=== PATIENT | female | born 1980 | race Caucasian/White ===

== ENCOUNTER 2022-10-26 13:36 | Emergency (ER) | payer OTHER, SELFPAY ==
[2022-10-26 13:49] VITALS: BP 152/91; PULSE 83; RESP 20; TEMP 36.7; O2SAT 97
--- NOTE | 2022-10-26 13:51 | ED.URI ---
HPI - URI/Sore Throat General Chief Complaint: Upper Respiratory Infection Stated Complaint: Cough/Chest Congestion Time Seen by Provider: 10/26/22 13:40 Source: patient and RN notes reviewed History of Present Illness HPI Narrative: Patient is a 42-year-old female who presents to urgent care with complaints of cough, congestion, headache and fatigue. Patient states that it started yesterday. Patient has been taking DayQuil and Tylenol. Denies any nausea or vomiting. Patient does have a history of asthma and uses albuterol at home. Patient is a current smoker. No other acute complaints. No acute distress noted. Patient aware of the plan of care. Some parts of this dictation were generated by voice recognition software and may contain typographical and/or grammatical inaccuracies. Related Data Home Medications Medication Instructions Recorded Confirmed albuterol sulfate 90 mcg/actuation inhalation 10/26/22 aerosol inhaler atorvastatin 40 mg tablet mg 10/26/22 fluoxetine 40 mg capsule mg 10/26/22 10/26/22 Allergies Allergy/AdvReac Type Severity Reaction Status Date / Time No Known Allergies Allergy Verified 10/26/22 13:54 Review of Systems Review of Systems: CONSTITUTIONAL: Denies fever, chills, or sweats. Reports of fatigue EYES: Denies visual changes, redness, or discharge. ENT: Denies rhinorrhea, congestion, sore throat, or otalgia. CARDIOVASCULAR: Denies chest pain, palpitations, or edema. RESPIRATORY: Reports of chest congestion, cough, intermittent dyspnea GASTROINTESTINAL: Denies abdominal pain, nausea, vomiting, or diarrhea. GENITOURINARY: Denies dysuria or hematuria. SKIN: Denies rash or itching. MUSCULOSKELETAL: Denies back pain, joint pain, or myalgia. NEUROLOGIC: Reports of headache All other systems reviewed are negative, except as documented in HPI. PMFSH Comments At the time of my signature, I reviewed and agree with the nursing past medical, surgical, social, and family history. There is no relevant family history pertinent to the patient complaint. Exam Narrative: GENERAL: This is a well-nourished, well-developed patient, in no apparent distress. HEAD: normocephalic, atraumatic. EYES: PERRL. Sclera clear/white. Vision is grossly intact. EARS: External ears normal, auditory canals clear and without drainage, TMs normal without perforation. Hearing grossly intact. NOSE: External nose normal with no obvious nasal discharge, nares without redness, clear rhinorrhea. THROAT: Mucous membranes moist, posterior pharynx clear. Moderate postnasal drainage NECK: Neck supple CARDIOVASCULAR: Regular rate and rhythm RESPIRATORY: Inspiratory and expiratory wheezes, tight throughout. SKIN: warm, intact with no suspicious lesions or rash, good texture and turgor. NEURO: awake, alert, and oriented to person, place and time. There were no obvious focal neurologic abnormalities. EXTREMITIES: No clubbing, cyanosis, or edema. Course Course Level of Care: Express Care Visit Vital Signs Vital signs: Vital Signs Temperature 98.1 F 10/26/22 13:49 Pulse Rate 83 10/26/22 13:49 Respiratory Rate 20 10/26/22 13:49 Blood Pressure 152/91 H 10/26/22 13:49 Pulse Oximetry 97 10/26/22 13:49 Oxygen Delivery Room Air 10/26/22 13:49 Temperature 98.1 F 10/26/22 13:49 Pulse Rate 83 10/26/22 13:49 Respiratory Rate 20 10/26/22 13:49 Blood Pressure 152/91 H 10/26/22 13:49 Pulse Oximetry 97 10/26/22 13:49 Oxygen Delivery Room Air 10/26/22 13:49 Reviewed- Patient is informed that they may have pre-hypertension or hypertension based on a blood pressure reading in the department. I recommend the patient call the primary care provider listed on their discharge instructions or a physician of their choice this week to arrange follow-up for further evaluation of possible pre-hypertension or hypertension. MDM - URI/Sore Throat MDM Narrative Medical decision making narrative: Advised p
[2022-10-26] MEDS: IPRATROPIUM BR 0.02% INH SOLN 0.5 MG/2.5 ML VIAL INHALATION (14:08)
[2022-10-26] MEDS: ALBUTEROL SULFATE NEB 2.5 MG/3 ML INH INHALATION (14:08)
== END 2022-10-26 14:55 | disposition home or self-care (01) ==
PROVIDERS: Emergency Provider Nurse Practitioner Family; PCP Internal Medicine
DX: J40 Bronchitis, not specified as acute or chronic (principal); E78.00 Pure hypercholesterolemia, unspecified; J45.909 Unspecified asthma, uncomplicated
CPT/HCPCS: 99203; G0463

== ENCOUNTER 2024-10-26 13:18 | Emergency (ER) | payer BC, SELFPAY ==
[2024-10-26 13:33] VITALS: BP 132/77; PULSE 78; RESP 16; TEMP 36.3; O2SAT 98
--- NOTE | 2024-10-26 13:33 | ED_ITS ---
HPI - URI/Sore Throat General Chief Complaint: Upper Respiratory Infection Stated Complaint: Sore throat / cough Time Seen by Provider: 10/26/24 13:33 History of Present Illness HPI Narrative: 44-year-old female presented for complaint of sore throat, nasal congestion and cough over the past 3 days. Woke up this morning and had right-sided neck pain with swollen glands. Not taking anything for symptoms. Denies shortness of breath, nausea, vomiting diarrhea, fevers or lethargy. Smokes 1ppd. Related Data Home Medications ?Medication ?Instructions ?Recorded ?Confirmed ?Last Taken ?Type albuterol sulfate 90 mcg/actuation inhalation 10/26/22 Unknown History aerosol inhaler atorvastatin 40 mg tablet mg 10/26/22 Unknown History fluoxetine 40 mg capsule mg 10/26/22 10/26/22 Unknown History ibuprofen 800 mg tablet mg 10/26/24 Unknown History omeprazole 20 mg capsule,delayed mg 10/26/24 Unknown History release Allergies Allergy/AdvReac Type Severity Reaction Status Date / Time No Known Allergies Allergy Verified 10/26/24 13:33 Review of Systems Review of Systems: per [facility] [place] Social History Social History (Updated 10/26/24 @ 13:46 by Kristie Cordova, [facility]) Smoking packs per day: 1 Smoking cigarettes per day: 20.0 Smoking status: Current every day smoker Tobacco type: cigarettes Exam Narrative: GENERAL: mildly Ill-appearing, no acute distress. EYES: conjunctivae clear ENT: Mucous membranes moist. TM pearly saleh with normal light reflex bilaterally; no tragal tenderness. Oropharynx not erythematous without lesions. No drooling, no hoarseness, no trismus, uvula midline. No tripod positioning, hot potato voice, or soft palate swelling. NECK: Supple. No lymphadenopathy; reports right anterior cervical tenderness CHEST: Clear to auscultation, breath sounds equal. Wheezing to bases. No respiratory distress, speaks in full sentences. HEART: Regular rate and rhythm. No murmur heard. SKIN: Warm, dry, no rash. NEURO: Alert and oriented x3. Course Course Emergency Course: Patient is aware of diagnosis, understands and agrees to treatment plan. Anticipatory guidance given. Patient agrees to follow-up as directed and is aware of reasons to seek care at the emergency department. Portions of this record may have been created with voice recognition software Level of Care: Express Care Visit MDM - URI/Sore Throat MDM Narrative Medical decision making narrative: negative strep result reviewed with pt. declined viral testing. Reviewed prescription. she has albuterol inhaler. Advise supportive treatments. Patient is appropriate for outpatient treatment and follow-up. Differential Diagnosis Differential diagnosis: Likely upper respiratory infection, viral infection and pharyngitis Discharge Plan Discharge Clinical Impression: Bronchitis Patient Disposition: Home Condition: Stable Instructions: Antibiotic Form, Acute Bronchitis (ED) Additional Instructions: Rapid strep swab was negative today You will be notified in a few days if the culture comes back positive for strep, and appropriate antibiotics will be called in at that time. if symptoms are due to a viral illness, it is not treated with antibiotics. V iral symptoms can be present for up to 10-14 days. take the steroid as prescribed Use your inhalers as previously directed Recommendations: Flonase spray and Zyrtec for sinus congestion Cough syrup may cause drowsiness; avoid driving or take it at night time. Tylenol every 8 hours as needed for pain/fever Soft foods, cool liquids, warm tea. Gargle with warm saltwater twice a day. Chloraseptic spray and throat lozenges. Rest and stay hydrated. --Follow up with your PCP --Go to the ER immediately if you cannot swallow your saliva, trouble breathing/wheezing, throat swelling, pain is persistent and severe Patient Language: Yoruba Prescriptions: New benzonatate 200 mg capsule 200 mg PO TID PRN (Reason: cough) Qty: 20 0RF methylprednisolone [Medrol (Barrett)] 4 mg tablets,dose pack See Rx Instructions .ROUTE .COMPLEX Qty: 21 0RF Rx Instructions: orally per package directions No Action fluoxetine 40 mg capsule atorvastatin 40 mg tablet albuterol sulfate 90 mcg/actuation HFA aerosol inhaler INHALATION prednisone 10 mg tablet See Rx Instructions .ROUTE .COMPLEX Qty: 30 0RF Rx Instructions: 4 tabs daily for days 1-3, 3 tabs daily for days 4-6, 2 tabs daily for days 7-9, 1 tab daily for days 10-12 albuterol sulfate 90 mcg/actuation HFA aerosol inhaler 2 puff INHALATION QID PRN (Reason: shortness of breath or wheezing) Qty: 8 0RF ibuprofen 800 mg tablet omeprazole 20 mg capsule,delayed release(DR/EC) Follow-up/Referrals: Uriarte,Venus Tidwell [Primary Care Provider] - Stand Alone Forms: Work/School Release IP Time of Disposition: 13:44
--- OUTSIDE RECORDS SUMMARY | 2024-10-26 13:37 | XMS_ITS | Clinical Summary ---
Author Organization [facility] [address] [facility] Address [address] [place] [address] Care Team Providers Care Trimmer Loader Name Role Phone Venus Uriarte NP Primary Care Provider [phone] Allergies No known active allergies Medications atorvastatin (LIPITOR) 40 mg tabletIndications: Mixed hyperlipidemia Take 1 tablet (40 mg total) by mouth daily 90 tablet 3 4 Active FLUoxetine (PROzac) 40 mg capsuleIndications :Anxiety Take 1 capsule (40 mg total) by mouth daily 90 capsule 3 4 025 Active omeprazole (PriLOSEC) 20 mg capsuleIndications :Gastroesophageal reflux disease without esophagitis Take 1 capsule (20 mg total) by mouth 2 (two) times a day 180 capsule 3 4 025 Active benzonatate (TESSALON) 200 mg capsuleIndications :Cough Take 1 capsule (200 mg total) by mouth 3 (three) times a day as needed for cough 30 capsule 4 Active albuterol HFA (PROVENTIL HFA,VENTOLIN HFA,PROAIR HFA) 90 mcg/actuation inhalerIndications :Mild intermittent asthma without complication Inhale 2 puffs every 4 (four) hours as needed for wheezing 18 g 3 5 Active ibuprofen (ADVIL,MOTRIN) 800 mg tabletIndications: Right leg pain Take 1 tablet (800 mg total) by mouth 3 (three) times a day 90 tablet 4 5 Active ibuprofen (ADVIL,MOTRIN) 800 mg tabletIndications: Right leg pain Take 1 tablet (800 mg total) by mouth 3 (three) times a day 90 tablet 4 3 025 Discontin ued(Reord er) Active Problems Problem Noted Date Diagnosed Date Acute URI 06/22/2024 Assessment & Plan (06/22/2024 3:42 PM INFORMATION SECURITY ASSOCIATE): Doxycycline for pneumonia coverage given, benzonatate given for coughing, and Medrol dose pack given for air way inflammation. Will continue to monitor. Advised to continue with Albuterol inhaler PRN. Class 1 obesity due to exces s calories without serious comorbidity with body mass index (BMI) of 34.0 to 34.9 in adult 06/22/2024 Assessment & Plan (06/22/2024 3:42 PM INFORMATION SECURITY ASSOCIATE): Encouraged heart healthy diet and lifestyle. Advised 150 min/week of aerobic exercise. Encounter for screening colonoscopy 03/08/2024 Right leg pain 11/09/2022 Trochanteric bursitis of right hip 10/20/2022 Assessment & Plan (10/20/2022 1:06 PM CDT): Patient continues to have right hip pain previously she works as a application systems administrator.. 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 Previously back x-rays were done that showed degenerative arthritis.. History of nicotine vaping 09/01/2021 Sciatica, right side 08/05/2020 Assessment & Plan (03/02/2022 1:43 PM CDT): Sciatica getting worse she has been symptomatic 8-12 months pain is tense from lateral side right hip down to her foot.. Pain can do straight leg raise sitting and lying does aggravate her pain. Is at this time lumbar spine x-ray, refer to physical therapy, start this patient on Celebrex 200 mg twice a day. Does have some GERD eye and she is advised elevated is may aggravate this will have to see what happens. Patient to give me a progress report one-month. Assessment & Plan (08/05/2020 5:37 PM INFORMATION SECURITY ASSOCIATE): Patient's sciatica right-sided hip pain and pain radiating down her to 3rd of her femur laterally.. Symptoms present about 3 weeks no injury or accident. 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 No other complaints muscle skeletal simental.. Patient is given Cymbalta/duloxetine for neuropathy as well as her mood/anxiety.. If symptoms remain a full continue ibuprofen or another non steroidal anti-inflammatory for the hip and sciatica symptoms along with duloxetine. Mixed hyperlipidemia 01/24/2019 Assessment & Plan (02/29/2024 2:20 PM CDT): Chronic, stable Lipids at goal Continue Atorvastatin 40 mg daily Assessment & Plan (11/09/2022 2:16 PM CDT): Continue Lipitor. Will recheck labs Assessment & Plan (10/20/2022 1:07 PM CDT): Previous lipid profile in therapeutic range will update lipid profile today. No change in therapy at this time Assessment & Plan (09/01/2021 12:17 PM INFORMATION SECURITY ASSOCIATE): Lipid profile in therapeutic range with medication. Assessment & Plan (01/14/2021 5:23 PM CDT): Patient not taking atorvastatin at this time will do updated fasting lipid profile. Assessment & Plan (08/05/2020 5:35 PM INFORMATION SECURITY ASSOCIATE): Lipid profile within therapeutic range. Recheck in 6 months. Assessment & Plan (01/19/2020 6:25 PM CDT): Update on patient's lipid profile today continue atorvastatin 40 mg daily. Assessment & Plan (01/24/2019 6:14 PM CDT): Plans at this time recheck her lipid profile she is taking atorvastatin 40 mg daily without any difficulty. Non-seasonal allergic rhinitis 01/24/2019 Assessment & Plan (01/24/2019 6:18 PM CDT): Patient is symptomatic allergic rhinitis she is advised use Maureen or Zyrtec generic form. Asthma 09/21/2017 Assessment & Plan (10/20/2022 1:08 PM CDT): Asthma remains stable no change in therapy Assessment & Plan (03/02/2022 1:44 PM CDT): Patient continues use albuterol HFA on a p.r.n. basis. Assessment & Plan (09/01/2021 12:17 PM INFORMATION SECURITY ASSOCIATE): Patient's using albuterol p.r.n. few times a week. Longer taking the equivalent of Advair. Patient is very stable does not need this product a the maintenance medication Assessment & Plan (01/14/2021 5:23 PM CDT): Asthma stable will continue present medication. Assessment & Plan (08/05/2020 5:38 PM INFORMATION SECURITY ASSOCIATE): Patient's asthma stable occasional use of albuterol HFA. No change in therapy. Assessment & Plan (01/19/2020 6:25 PM CDT): Patient's continues to have some episodes of asthma several times a week in which albuterol is used. No change in therapy. Patient stands discontinue smoking would be of benefit to her. Assessment & Plan (01/24/2019 6:13 PM CDT): Patient's asthma for which is aggravated this time by the heat she is having wheezing she is having shortness of breath and she is using her inhaler 4-6 times per day.. 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 Patient talks in complete sentences without any difficulty. No accessory muscle use wheezing on exam present. Patient is given samples of Breo 200/5 . Anticipate asthma will get better at the end of summer she has enough samples to go through February. He has [employer] insurance which may not cover some medications. Patient is encouraged to utilize albuterol 4 times a day. Assessment & Plan (07/24/2018 6:47 PM INFORMATION SECURITY ASSOCIATE): Mild intermittent asthma the medication albuterol HFA does help her. She has to use it several times a week . Patient is given samples Dulera see if this will be more effective in controlling asthma. Anxiety 10/16/2016 Assessment & Plan (02/29/2024 2:19 PM CDT): Chronic, stable, well controlled Continue Fluoxetine 40 mg daily Assessment & Plan (03/02/2022 1:44 PM CDT): Anxiety remains well control on fluoxetine 40 mg daily. Is able to [employer] full- time job as a application systems administrator and problems functioning. Assessment & Plan (09/01/2021 12:16 PM INFORMATION SECURITY ASSOCIATE): Anxiety very stable on present medications. Assessment & Plan (01/14/2021 5:25 PM CDT): Patient found to fluoxetine at 20 mg per day stop working is change to Cymbalta she did not tolerate this. I am going to resume her fluoxetine at 40 mg per day patient give me a progress report this fails to work effectively for her I will see her back in the next several months. 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 Assessment & Plan (08/05/2020 5:30 PM INFORMATION SECURITY ASSOCIATE): Fluoxetine at 20 mg daily is less effective than in the past. Patient has some neuropathy symptoms. Minute discontinue fluoxetine start this patient on Cymbalta/duloxetine see if it will benefit both health problems.. She advised to start on 60 mg daily she becomes nauseated I would do every other day into she adjusted the medication.. Assessment & Plan (01/19/2020 6:27 PM CDT): Patient is having anxiety and depression fluoxetine is been effective is not as helpful as it once was will increase in fluoxetine to 40 mg daily Assessment & Plan (07/24/2018 6:45 PM INFORMATION SECURITY ASSOCIATE): History of anxiety depression her symptoms of predominant that of anxiety. Fluoxetine/Prozac 20 mg daily works very well for her she is comfortable with this medication and how it controls her anxiety. Mild intermittent asthma 10/16/2016 Assessment & Plan (02/29/2024 2:19 PM CDT): Chronic, stable Albuterol as needed History of irritable bowel syndrome 10/16/2016 Assessment & Plan (02/29/2024 2:19 PM CDT): Chronic, intermittent flares Referral to GI placed Due for colonoscopy Assessment & Plan (07/24/2018 6:47 PM INFORMATION SECURITY ASSOCIATE): History of IBS not active problem at this time. Patient has not been symptomatic for least 6 months. Gastroesophageal reflux disease without esophagi tis 10/16/2016 Assessment & Plan (02/29/2024 2:19 PM CDT): Chronic, stable Continue Omeprazole 20 mg BID Assessment & Plan (07/24/2018 6:45 PM INFORMATION SECURITY ASSOCIATE): Patient's GERD symptoms is controlled with omeprazole 40 mg daily. Resolved Problems Problem Noted Date Diagnosed Date Resolved Date Non-recurrent acute suppurat du otitis media of right ear without spontaneous rupture of tympanic membrane 11/09/2022 02/29/2024 Assessment & Plan (11/09/2022 2:18 PM CDT): Amoxicillin as prescribed Encounter to establish care 11/09/2022 02/29/2024 Preventative health care 01/19/2020 Assessment & Plan (10/20/2022 1:05 PM CDT): History and physical completed patient's health risk assessment health maintenance reviewed in addressed. Patient's chief complaint right hip pain consistent with bursitis. Assessment & Plan (09/01/2021 12:16 PM INFORMATION SECURITY ASSOCIATE): History and physical completed patient's health risk assessment health maintenance reviewed in addressed. Laboratory results return BMP FLP a very good. Patient missed her well-woman exam secondary to COVID reschedule. Mammogram also to be schedule. Assessment & Plan (01/14/2021 5:23 PM CDT): History and physical completed patient's health risk assessment health maintenance reviewed in addressed.. Discussed COVID vaccine with this patient answer questions attended by discussion is my impression that she will follow through in getting a COVID vaccine. Patient needs a well-woman exam referral has been made. Mammogram will be scheduled. Assessment & Plan (01/19/2020 6:26 PM CDT): A risk assessment health maintenance reviewed in addressed patient needs to follow-up with kohinoor operator for well-woman exam patient's mammogram is current Cigarette nicotine dependenc e without complication 09/21/2017 09/01/2021 Assessment & Plan (01/14/2021 5:24 PM CDT): Patient continues to smoke approximately 1 pack a day or less Assessment & Plan (01/19/2020 6:24 PM CDT): Patient continues to smoke 1 pack of cigarettes per day unchanged for several years. IBS (irritable bowel syndrome) 09/21/2017 07/24/2018 Tobacco use 10/16/2016 01/19/2020 Overview (12/04/2016): Tobacco use Assessment & Plan (07/24/2018 6:48 PM INFORMATION SECURITY ASSOCIATE): Patient smokes 1 pack per day I discussed with her the use of nicotine patches and gum. Will discuss this again on the next visit. Immunizations Immunization Administration Dates Next Due Influenza, Quadrivalent, Shannan l Culture-based MDCK, Preservative Free, Antibiotic Free, Intramuscular 05/21/2021 Influenza, Quadrivalent, Spl it, Preservative Free, Intramuscular 05/05/2023,06/24/2015 Influenza, Unspecified 06/22/2024(Deferr ed: Patient Refused),03/12/2022,04/11/2017 Surgical History Surgery Date Site/Laterality Comments OTHER SURGICAL HISTORY [facility] CHOLECYSTECTOMY Cholecystectomy Medical History Medical History Date Comments Airway hyperreactivity Asthma Hx Other Medical GERD Hx Other Medical IBS GERD (gastroesophageal reflux disease) Anxiety Chronic bronchitis (HCC) Depression Family History Medical History Relation Name Comments Allergy (severe) Father Kaiser barraza Hypertension Father Kaiser barraza Hypertension; Other Father Kaiser barraza Alive and well; Arthritis Mother Galina barraza Diabetes Mother Galina barraza Diabetes mellit us; Other Mother Galina barraza Alive and well; Relation Name Status Comments Father Kaiser barraza Alive Mother Galina barraza Alive Social History Tobacco Use Types Packs/Day Years Used Date Smoking Tobacco: Every Day Cigarettes 1 28.8 Started: 07/12/1992; Last attempted to quit: 04/16/2021 Smokeless Tobacco: Current Tobacco Cessation:Ready to Q uit: No; Counseling Given: Not Answered Comments:Smoking History Packs/day: 1 Packs Alcohol Use Standard Drinks/Week Comments Yes 0 (1 standard drink = 0.6 oz pur e alcohol) AUDIT-C Answer Date Recorded Q1: How often do you have a drink containing alcohol? 4 or more times a week 11/09/2022 Average Number of Drinks Not on file 023 Frequency of Binge Drinking Not on file 07/2022 PHQ-2 Answer Date Recorded PHQ-2 Total Score (If total score is 3 or more points, staff should administer the PHQ-9) 0 06/22/2024 Comments No Sex and Gender Information Value Date Recorded Sex Assigned at Not on file Legal Sex Female 4:41 PM INFORMATION SECURITY ASSOCIATE Gender Identity Not on file Sexual Orientation Not on file Obstetrics History Last Filed Vital Signs Vital Sign Reading Time Taken Comments Blood Pressure 122/80 02/29/2024 2:01 PM CDT Pulse 72 06/22/2024 3:15 PM INFORMATION SECURITY ASSOCIATE Temperature 36.8 C (98.2 F) 06/22/2024 3:15 PM INFORMATION SECURITY ASSOCIATE Respiratory Rate 16 06/22/2024 3:15 PM INFORMATION SECURITY ASSOCIATE Oxygen Saturation 94% 06/22/2024 3:15 PM INFORMATION SECURITY ASSOCIATE Inhaled Oxygen Concentration - - Weight 98.2 kg (216 lb 6.4 oz) 06/22/2024 3:15 P M INFORMATION SECURITY ASSOCIATE Height 167.6 cm (5' 6 ) 02/29/2024 2:01 PM CDT Body Mass Index 34.93 02/29/2024 2:01 PM CDT Plan of Treatment Upcoming Encounters Date Type Department Care Team (Late st Contact Info) Description 12/28/2024 9:30 AM CDT Hospital Encounter [facility] [address] [place] [address] Taylor Flores MD [address] [address] [place] [address] 12/28/2024 9:30 AM CDT - 12/28/2024 10:00 AM CDT Surgery [facility] [address] [place] [address] Taylor Flores MD [address] [facility] [address] [facility] [address] [place] [address] COLONOSCOPY Scheduled Procedures Name Priority Associated Diagnoses Date/Ti me COLONOSCOPY History of irritable bowel syndrome Encounter for screening colonoscopy 12/28/2024 9:30 AM CDT Health Maintenance Due Date Last Done Comments Colon Cancer Screening-Colonoscopy 1978 DTaP/Tdap/Td Vaccine (1 - Tdap) 1989 Breast Cancer Screening-Mammogram 10/20/2023 10/19/2022, 08/22/2018 Pneumococcal vaccine <65 (1 of 2 - PCV) 02/13/2025 Postponed from 1997 (Patient declined, but will receive in the future) Cervical Cancer Screening 02/28/2025 Po stponed from 1978 (Patient declined, but will receive in the future) Regular Well Visit/Exam 18-64 02/28/2025 02/29/2024, 10/19/2022, 09/01/2021, Additional history exists Influenza Vaccine (Season Ended) 2025 05/05/2023, 03/12/2022, 05/21/2021, Additional history exists Depression Screening 06/22/2025 06/22/2024, 02/29/2024, 05/05/2023, Additional history exists Covid-19 Vaccine Discontinued 06/11/2021, 05/21/2021 Hepatitis B Screening Completed 02/24/2024 Hepatitis C Screening Completed 02/24/2024 HPV Vaccines Aged Out No longer eligi ble based on patient's age to complete this topic Procedures Procedure Name Priority Date/Time Associated Diagnosis Comments HEPATITIS C ANTIBODY Routine 02/24/2024 1:17 PM CDT Encounter for hepatitis C screening test for low risk patient SCREENING MAMMOGRAM BILATERAL W KYA Schedule Routine, Read Routine (OP Routine) 10/19/2022 4:14 PM CDT Breast cancer screening by mammogram from Last 3 Months or Most Recently Relevant to Health Maintenance Results * Hepatitis C antibody Blood (02/24/2024 1:17 PM CDT) Hep C Ab Nonreactive Nonreactive Comment: Interpretive Data Nonreactive: Antibodies to HCV not detected. Does NOT exclude the possibility of recent exposure to HCV. Equivocal: Equivocal for HCV antibodies. Supplemental molecular testing will be automatically performed to determine infection status in accordance with current CDC screening recommendations. Reactive: Positive for HCV antibodies. This may represent current or past HCV infection. Supplemental molecular testing will be automatically performed to determine current infection status in accordance with current CDC screening recommendations. Interpretive data was last revised on 2019. Testing performed by: [facility], [address] [place] [address]., [id number] Blood 02/24/2024 1:17 PM CDT 02/24/2024 6:03 PM CDT us Venus Uriarte NP LAB MICROBIOLOGY - GENERAL ORDER PARKER Final Result Performing Organization Address City/State/[facility] Co de Phone Number [facility] [address] [facility] Department [place] [address] * Screening Mammogram Bilateral W Kya (10/19/2022 4:14 PM CDT) Anatomical Region Laterality Modality Breast Bilateral Mammography Narrative 10/20/2022 4:19 PM CDT BILATERAL DIGITAL MAMMOGRAPHY with tomography. The present examination has been compared to prior imaging study dated 08/22/2018. Mammography Findings CAD (computer-aided detection) software was utilized. The breasts are heterogeneously dense. This may lower the sensitivity of mammography. No masses, significant calcifications or other abnormalities are seen. Impression There is no mammographic evidence of malignancy. Screening mammogram in 1 year is recommended. BI-RADS Category 1: Negative PATIENT LETTER SENT Renan Taylor MD IMG MAMMO PROCEDURES Final Result from Last 3 Months or Most Recently Relevant to Health Maintenance Insurance [facility] [employer] OOS Care Teams Trimmer Loader Relationship Specialty Start Date End Date Venus Uriarte NP PCP - General Family Medicine 11/09/22
--- OUTSIDE RECORDS SUMMARY | 2024-10-26 13:37 | XMS_ITS | Clinical Summary ---
Author Organization [facility] Address [address] [address] Phone Care Team Providers Care Audit Clerk Name Role Phone Renan Taylor MD Primary Care Provider Allergies No known active allergies Medications PROAIR HFA 108 (90 BASE) MCG/ACT Aerosol Solution INHALE 2 PUFFS BY MOUTH EVERY 4 HOURS NEEDED 1 Inhaler 11 6 Active omeprazole (PRILOSEC) 40 MG CAPSULE DELAYED RELEASE TAKE ONE CAPSULE BY MOUTH EVERY DAY 30 Cap 1 7 Active HYDROcodone-acetami nophen (NORCO) 5-325 MG TabletIndications:A cute diverticulitis Take 1 Tablet by mouth every 6 hours as needed for Moderate or more severe pain. 15 Tablet 2 Active metroNIDAZOLE (Flagyl) 500 MG Tablet Take 1 Tablet by mouth 3 times daily. 30 Tablet 2 Active Active Problems Problem Noted Date Diagnosed Date IBS (irritable bowel syndrome) Asthma Immunizations Immunization Administration Dates Next Due PUR FLU 3+ YRS PRES FREE QUAD IM 06/24/2015 06/24/2016 Social History Tobacco Use Types Packs/Day Years Used Date Smoking Tobacco: Every Day Smokeless Tobacco: Never Alcohol Use Standard Drinks/Week Comments Yes 0 (1 standard drink = 0.6 oz pur e alcohol) Comments No Sex and Gender Information Value Date Recorded Sex Assigned at Not on file Legal Sex Female 10:55 PM CDT Gender Identity Not on file Sexual Orientation Not on file Last Filed Vital Signs Vital Sign Reading Time Taken Comments Blood Pressure 129/74 01/16/2022 2:03 PM CDT Pulse 64 01/16/2022 2:03 PM CDT Temperature 36.3 C (97.4 F) 01/16/2022 2:03 PM CDT Respiratory Rate 20 01/16/2022 11:27 AM CDT Oxygen Saturation 98% 01/16/2022 2:03 PM CDT Inhaled Oxygen Concentration - - Weight 95.3 kg (210 lb) 01/16/2022 11:27 AM CDT Height 167.6 cm (5' 6 ) 01/16/2022 11:27 AM CDT Body Mass Index 33.89 01/16/2022 11:27 AM CDT Plan of Treatment Health Maintenance Due Date Last Done Comments Hepatitis C Virus (HCV) Screening 1978 TdaP Immunization 1978 Hepatitis B Immunization (1 of 3 - 19+ 3-dose series) 1997 Pneumococcal Immunization Combined (1 of 2 - PCV) 1997 Colonoscopy 2023 Colorectal Cancer Screening 2023 Influenza Immunization (#1) 03/12/202405/12, 04/11/2017, 06/24/2015 SARS-COV-2 Immunization ( season) 2024 06/11/2021, 05/21/2021 Respiratory Syncytial Virus (RSV) Immunization (Adult) (1 - 1-dose 75+ series) 2053 Meningococcal Immunization (ACWY) Aged Out No longer eligible b ased on patient's age to complete this topic Rotavirus Immunization Aged Out No lo nger eligible based on patient's age to complete this topic Insurance MEDICAID [facility] Care Teams Audit Clerk Relationship Specialty Start Date End Date Renan Taylor MD [address] [place] [address] PCP - General Internal Medicine 01/16/22
--- OUTSIDE RECORDS SUMMARY | 2024-10-26 13:37 | XMS_ITS | Referral Summary ---
Author Organization [facility] Address [address] [place] [address] Care Team Providers Care Women'S Studies Professor Name Role Phone Venus Uriarte NP Primary Care Provider [phone] Allergies No known active allergies Medications atorvastatin [...] 06/22/2024 Assessment & Plan (06/22/2024 3:42 PM PIPELAYER): Doxycycline for pneumonia coverage given, benzonatate given for coughing, and Medrol dose pack given for air way inflammation. Will continue to monitor. Advised to continue with Albuterol inhaler PRN. Class 1 obesity due to exces s calories without serious comorbidity with body mass index (BMI) of 34.0 to 34.9 in adult 06/22/2024 Assessment & Plan (06/22/2024 3:42 PM PIPELAYER): Encouraged heart healthy diet and lifestyle. Advised 150 min/week of aerobic exercise. 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 Assessment & Plan (08/05/2020 5:37 PM PIPELAYER): Patient's sciatica right-sided hip pain and pain radiating down her to 3rd of her femur laterally.. Symptoms present about 3 weeks no injury or accident. Patient works as a home teaching grades 9 thru 12 teacher she is on her feet 8-8 1/2 [...] time Assessment & Plan (09/01/2021 12:17 PM PIPELAYER): Lipid profile in therapeutic range with medication. Assessment & Plan (01/14/2021 5:23 PM CDT): Patient not taking atorvastatin at this time will do updated fasting lipid profile. Assessment & Plan (08/05/2020 5:35 PM PIPELAYER): Lipid profile within therapeutic range. Recheck in [...] basis. Assessment & Plan (09/01/2021 12:17 PM PIPELAYER): Patient's using albuterol p.r.n. few times a week. Longer taking the equivalent of Advair. Patient is very stable does not need this product a the maintenance medication Assessment & Plan (01/14/2021 5:23 PM CDT): Asthma stable will continue present medication. Assessment & Plan (08/05/2020 5:38 PM PIPELAYER): Patient's asthma stable occasional use of albuterol [...] samples to go through February. He has [employer] insurance which may not cover some medications. Patient is encouraged to utilize albuterol 4 times a day. Assessment & Plan (07/24/2018 6:47 PM PIPELAYER): Mild intermittent asthma the medication albuterol HFA [...] to [place] full- time job as a home teaching grades 9 thru 12 teacher and problems functioning. Assessment & Plan (09/01/2021 12:16 PM PIPELAYER): Anxiety very stable on present medications. Assessment [...] business. Assessment & Plan (08/05/2020 5:30 PM PIPELAYER): Fluoxetine at 20 mg daily is less [...] daily Assessment & Plan (07/24/2018 6:45 PM PIPELAYER): History of anxiety depression her symptoms of [...] colonoscopy Assessment & Plan (07/24/2018 6:47 PM PIPELAYER): History of IBS not active problem at this time. Patient has not been symptomatic for least 6 months. Gastroesophageal reflux disease without esophagi tis 10/16/2016 Assessment & Plan (02/29/2024 2:19 PM CDT): Chronic, stable Continue Omeprazole 20 mg BID Assessment & Plan (07/24/2018 6:45 PM PIPELAYER): Patient's GERD symptoms is controlled with omeprazole [...] bursitis. Assessment & Plan (09/01/2021 12:16 PM PIPELAYER): History and physical completed patient's health risk [...] in addressed patient needs to follow-up with social worker palliative care for well-woman exam patient's mammogram is current [...] use Assessment & Plan (07/24/2018 6:48 PM PIPELAYER): Patient smokes 1 pack per day I discussed with her the use of nicotine patches and gum. Will discuss this again on the next visit. Immunizations Immunization Administration Dates Next Due Influenza, Quadrivalent, Shannan l Culture-based MDCK, Preservative Free, Antibiotic Free, Intramuscular 05/21/2021 Influenza, Quadrivalent, Spl it, Preservative Free, Intramuscular 05/05/2023,06/24/2015 Influenza, Unspecified 06/22/2024(Deferr ed: Patient Refused),03/12/2022,04/11/2017 Social History Tobacco Use Types Packs/Day Years [...] on file Legal Sex Female 4:41 PM PIPELAYER Gender Identity Not on file Sexual Orientation Not on file Last Filed Vital Signs Vital Sign Reading Time Taken Comments Blood Pressure 122/80 02/29/2024 2:01 PM CDT Pulse 72 06/22/2024 3:15 PM PIPELAYER Temperature 36.8 C (98.2 F) 06/22/2024 3:15 PM PIPELAYER Respiratory Rate 16 06/22/2024 3:15 PM PIPELAYER Oxygen Saturation 94% 06/22/2024 3:15 PM PIPELAYER Inhaled Oxygen Concentration - - Weight 98.2 kg (216 lb 6.4 oz) 06/22/2024 3:15 P M PIPELAYER Height 167.6 cm (5' 6 ) 02/29/2024 2:01 PM CDT Body Mass Index 34.93 02/29/2024 2:01 PM CDT Plan of Treatment Upcoming Encounters Date Type Department Care Team (Late st Contact Info) Description 12/28/2024 9:30 AM CDT Hospital Encounter [facility] [address] [place] [address] Taylor Flores MD [address] [place] [address] [place] [address] 12/28/2024 9:30 AM CDT - 12/28/2024 10:00 AM CDT Surgery [facility] [address] [place] [address] Taylor Flores MD [address] [place] [address] [address] [place] [address] COLONOSCOPY Scheduled Procedures Name Priority Associated Diagnoses Date/Ti me COLONOSCOPY History of irritable bowel syndrome Encounter for screening colonoscopy 12/28/2024 9:30 AM CDT Procedures Procedure Name Priority Date/Time Associated Diagnosis [...] last revised on 2019. Testing performed by: [facility], [address] [place] [address], [place]., [address] Blood 02/24/2024 1:17 PM CDT 02/24/2024 6:03 PM CDT us Venus Uriarte NP LAB MICROBIOLOGY - GENERAL ORDER PARKER Final Result LEON ROY (GERALDINE) [address] [facility] Department [place] [address] * Screening Mammogram Bilateral W Kya (10/19/2022 [...] Most Recently Relevant to Health Maintenance Insurance [facility] BLUE ACCESS OOS Member Subscriber Plan / Payer (Ef fective 2023-Present) Name:Adrianna Almaguer Relation to Subscriber:Spouse Name:Stef Almaguer Date of :1966 (Home) Address: [address] [place] [id number] Payer ID:[id number] (NAIC) Type:BC ALLIANCE Address: [facility] [id number] [place] [id number] Care Teams Women'S Studies Professor Relationship Specialty Start Date End Date Venus Uriarte NP PCP - General Family Medicine 11/09/22
[2024-10-26 13:42] LABS: EDSTREPNEGPOS1 Negative (Negative)
== END 2024-10-26 13:47 | disposition home or self-care (01) ==
PROVIDERS: Emergency Provider Nurse Practitioner Family; PCP Nurse Practitioner
DX: J40 Bronchitis, not specified as acute or chronic (principal); F17.210 Nicotine dependence, cigarettes, uncomplicated; Z79.899 Other long term (current) drug therapy; Z79.1 Long term (current) use of non-steroidal anti-inflammatories (NSAID)
CPT/HCPCS: 87081; 87880; 99213; G0463